=== PATIENT | male | born 1945 | race Caucasian/White ===

== ENCOUNTER → 2016-12-30 | Outpatient (CLI) | payer MEDICARE, OTHER ==
[~2016-12-30] MED LIST: (DPS FOR ANTIVE25 MG PO; ASPIRIN (CHILDR81 MG PO; CPAP INH; GLUCOPHAGE500 MG PO; HYDRODIURIL25 MG PO; LIPITOR80 MG PO; LOPRESSOR25 MG PO; NORCO 5-325 MG1 TAB PO; NORVASC10 MG PO; PRINIVIL OR ZES10 MG PO; SOTALOL120 MG PO; THERA-VITE W/ B1 TAB PO; TUMS REGULAR ST1 TAB PO; XARELTO20 MG PO; ZYRTEC10 MG PO
[2016-12-30 16:32] LABS: BASOPHIL # 0.1 K/uL (0.0-0.2); BASOPHIL % 0.6 %; EOSINOPHIL # 0.4 K/uL (0.0-0.5); EOSINOPHIL % 4.5 %; HEMATOCRIT 44.4 % (37.0-53.0); HEMOGLOBIN 14.5 g/dL (11.0-16.0); IMMATURE GRANULOCYTE # 0.1 K/uL (0.0-0.3); IMMATURE GRANULOCYTE % 0.5 %; LYMPHOCYTE % 21.4 %; MCH 30.4 pg (27.0-34.0); MCHC 32.7 gm/dL (32.0-36.5); MCV 93.1 fl (83.0-98.0); MONOCYTE # 0.9 K/uL (0.0-1.0); MONOCYTE % 9.7 %; MPV 12.2 fl (9.4-12.4); NEUTROPHIL % 63.3 %; NRBC % 0 /100WBC (0-0.00); PLATELET COUNT 222 K/uL (150-450); RBC 4.77 M/uL (3.50-5.50); RDW-CV 13.1 % (11.9-14.6); WBC 9.5 K/uL (4.0-11.0)
[2016-12-30 16:39] LABS: ALBUMIN 3.5 gm/dL (3.5-5.0); ANION GAP 13.2 (10.0-19.0); BLOOD UREA NITROGEN 20 mg/dL (6-24); CALCIUM 9.4 mg/dL (8.5-10.5); CHLORIDE 102 mMol/L (96-110); CO2 28 mMol/L (22-32); ESTIMATED GFR (MDRD EQUATION) > 60; PHOSPHORUS 3.7 mg/dL (2.5-4.9); POTASSIUM 4.2 mMol/L (3.7-5.1); SODIUM 139 mMol/L (135-145)
== END | disposition disaster alternative care site (69) ==
LOC: LCNC 16:12
PROVIDERS: Internal Medicine Interventional Cardiology
DX: I35.0 Nonrheumatic aortic (valve) stenosis (principal)

== ENCOUNTER 2017-01-02 08:47 | Outpatient (CLI) | payer MEDICARE, OTHER ==
[~2017-01-02] VITALS: Ht 182.9 cm; Wt 165.5 kg
--- NOTE | ~2017-01-02 | CATH ---
Cardiac Diagnostic Report Demographics Patient Name CHAYO RODRIGUEZ Gender Male T Date of 1945 Age 71 year(s) Patient Number [id number] Date of Study 01/02/2017 Visit Number [id number] Room Number G6399 [place] [id number] Ht Wt 165.8 kg Accession Number [id number] BMI Referring Love Alcala MD Primary Physician Physician Performing Bhavna Hernandez MD Secondary Physician Physician Diagnostic Bhavna Hernandez MD Assisting Physician Physician Interventional Physician Cushion Sewer Physician Findings and Conclusions Diagnostic Findings and Conclusion Nonobstructive CAD Severe Aortic stenosis Diagnostic Recommendations Evaluate for TAVR vs SAVR Procedure Description The patient was brought to the diagnostic cardiac catheterization-EP laboratory in the fasting, non-sedated state. Informed consent was obtained in the written and verbal form after the risks and benefits were explained. The patient had no further questions and agreed to proceed. The planned puncture-incision site(s) were shaved and prepped with ChloraPrep and draped in the usual sterile manner. Conscious sedation, supplemental oxygen, and pain control medications were delivered by a registered nurse under physician guidance. Surface ECG rhythm, blood pressure measurement, and pulse oximetry were monitored throughout the procedure. Arterial access. The access site was infiltrated with lidocaine. The vessel was entered with the Seldinger technique. A sheath was advanced into the vessel and used for catheter placement. Venous access. The access site was infiltrated with 2% lidocaine. The vessel was entered with the Seldinger technique. A sheath was advanced into the vessel and used for catheter placement. Right heart catheterization. A [place] catheter was successfully advanced to the right atrium, right ventricle, pulmonary artery, and pulmonary artery wedge position under fluoroscopic guidance. Resting hemodynamics were obtained. Measurements included pressures, arterial and venous oxygen saturation samples, and cardiac output. The [place] was removed without difficulty. Selective left coronary angiography. A catheter was advanced into the left coronary vessel ostium under Fluoroscopic guidance. Contrast was injected by hand. Images were obtained in multiple projections. Selective right coronary angiography. A catheter was advanced into the right coronary vessel ostium under fluoroscopic guidance. Contrast was injected by hand. Images were obtained in multiple projections. Arterial and Venous hemostasis was achieved. The patient was transferred to CT for CTA then to outpatient recovery via cart accompanied by a nurse and tech. The patient left the laboratory in stable condition. Diagnostic Cath Status: Elective Procedure Procedure Type Diagnostic procedure:Angiography:, RHC w/Coronary Angio Indications: Aortic stenosis and Pulmonary HTN. The procedure was explained in detail to the patient. Risks, complications and alternative treatments were reviewed. Written consent was obtained. Medications Reviewed with Patient prior to Procedure. Angiographic Findings Dominance: Right Cardiac Arteries and Lesion Findings LMCA: Lesion on LMCA: Ostial.30% stenosis . LAD: LAD medium ok. Diag 1 medium Lesion on 1st Diag: Mid subsection.50% stenosis . LCx: Circ large. OM large ok Lesion on Prox CX: Ostial.50% stenosis . RCA: RCA large calcified proximal plaque. PL small ok. PDA medium normal. Coronary Tree Procedure Data Procedure Date Date: 01/02/2017Start: 12:20 PMEnd: 01:15 PM Entry Locations - Percutaneous access was performed through the Right Femoral artery (Primary location). A 6 Fr sheath was inserted. Hemostasis was successfully obtained using Perclose ProGlide (Pandorama). Closure Comments: Sutued in place for CTA then Closure device done by Ananda Alcala post CTA. - Retrograde Percutaneous access was performed through the Right Femoral vein. A 7 Fr sheath was inserted. Closure Comments: Sutured in place by Linda Alcala then manual compression held post CTA. Procedure Medications Order and Administration + + +-------+------+ !Time !Medication !Dosage !Route ! + + +-------+------+ !01/02/2017 12:16 PM !Fentanyl !25 mcg !I.V. ! + + +-------+------+ !01/02/2017 12:22 PM !Fentanyl !25 mcg !I.V. ! + + +-------+------+ !01/02/2017 12:25 PM !Fentanyl !25 mcg !I.V. ! + + +-------+------+ !01/02/2017 12:36 PM !Fentanyl !25 mcg !I.V. ! + + +-------+------+ 01/02/2017 12:45 PM !Versed !0.5 mg !I.V. ! + + +-------+------+ Devices Used - A6 Fr. BS Angled Pigtail Diag. Catheterwas used for:LV Pressures.Unable to cannulate the vessel. - A6 Fr. BS JL 4 Diag. Catheterwas used for:Left coronary angiography. - A6 Fr. BS JR 4 Diag. Catheterwas used for:Right coronary angiography. Contrast Material - Isovue [id number] ml Fluoroscopy Time: Diagnostic: 17:12 minutes. Total: 17:12 minutes. Fluoroscopy Dose: Diagnostic: 2077 mGy. Total: 2077 mGy. Estimated Blood Loss: 5 ml. Medical History Performed Procedures and Imaging Results - No ACC stress or imaging studies were performed. Allergies - No known allergies. Risk Factors The patient risk factors include:obesity, hypertension, family history of premature CAD, diabetes mellitus, last creatinine: 1 mg/dl, creatinine clearance: 158.89 ml/min, prior valve surgery/procedure, dyslipidemia and Current/Recent(w/in 1 year) tobacco use. Admission Data Admission Date: 01/02/2017 Admission Time: 08:47 AM Admit Source: Other Insurance Payors: Medicare. Admission Medications + +------+------+ + + + + !Medication !Dosage!Times !Last !Last !Administered !Comments ! ! ! !Per !Delivery !Delivery ! ! ! ! ! !Day !Date !Time ! ! ! + +------+------+ + + + + !LYNETTE ! ! ! ! !Yes ! ! !Inhibitor ! ! ! ! ! ! ! !(any) ! ! ! ! ! ! ! + +------+------+ + + + + !Statin (any)! ! ! ! !Yes ! ! + +------+------+ + + + + Clinical Evaluation Leading to Procedure - There were no CAD presentation symptoms. - Anti-anginal medications were prescribed during the past two weeks. The medication is: Ca channel Blockers. Hemodynamics Condition: Rest Heart Rate: 60 bpm Oxygen Saturation +--------+-----+----+ +---+ + !Location!pCO2 !pO2 !% Saturation !Hgb!O2 Content ! +--------+-----+----+ +---+ + !SVC ! ! !59.8 ! ! ! +--------+-----+----+ +---+ + !IVC ! ! !66.7 ! ! ! +--------+-----+----+ +---+ + !RA ! ! !61.6 ! ! ! +--------+-----+----+ +---+ + !PCW ! ! !63 ! ! ! +--------+-----+----+ +---+ + !AO ! ! !88.6 ! ! ! +--------+-----+----+ +---+ + Pressures (mmHg) +-----+ + !Site !Pressure ! +-----+ + !RA !12 (7) ! +-----+ + !RV !38/ ,8 ! +-----+ + !PCW !15 (12) ! +-----+ + !PA !38/20 (27) ! +-----+ + !AO !122/64 (86) ! +-----+ + Cardiac Output + + +------+ !Time !Cardiac Output (l/min) !Use ! + + +------+ !01/02/2017 12:53 PM !6.29 !True ! + + +------+ !01/02/2017 12:53 PM !4.63 !True ! + + +------+ !01/02/2017 12:54 PM !2.94 !False ! + + +------+ !01/02/2017 12:54 PM !6.81 !True ! + + +------+ !01/02/2017 12:55 PM !8.01 !False ! + + +------+ Cardiac Output +-------+ + + + !Method !CO (l/min) !CI (l/min/m2) !SV (ml) ! +-------+ + + + !Thermal!5.91 ! !97.96 ! +-------+ + + + Shunts Oxygen Values O2 Capacity 197.2 Vascular Resistance (dynes x sec x cm-5) + +-----+----+----+----+---------+-------+ !CO method !TSVR !SVR !TPVR!PVR !TPVR/TSVR!PVR/SVR! + +-----+----+----+----+---------+-------+ !Thermal !14.56!13.3!4.58!2.56!0.31 !0.19 ! + +-----+----+----+----+---------+-------+ Discharge Data Discharge Date: 01/02/2017 Hospital Status: Outpatient Signatures dtt: David Huggins (cardio) dtd: 01/02/17 1220 Physician Self Edit
[~2017-01-02 08:47] MED LIST changes: -(DPS FOR ANTIVE25 MG PO; -ASPIRIN (CHILDR81 MG PO; -TUMS REGULAR ST1 TAB PO; -ZYRTEC10 MG PO
[2017-07-05] MEDS ORDERED: ASPIRIN (CHILDR81 MG PO (10:33)
[2017-07-05] MEDS ORDERED: ZYRTEC10 MG PO (10:33)
[2017-07-05] MEDS ORDERED: (DPS FOR ANTIVE25 MG PO (10:34)
[2017-07-05] MEDS ORDERED: TUMS REGULAR ST1 TAB PO (10:35)
== END 2017-01-02 17:30 | disposition disaster alternative care site (69) ==
LOC: GPCU 08:47 → GCAT 08:47 → GPOC 09:00 → GCAT 17:30
PROC: B2111ZZ Fluoroscopy of Multiple Coronary Arteries using Low Osmolar Contrast (ICD-10-PCS; principal; 2017-01-02)
PROC: 4A023N6 Measurement of Cardiac Sampling and Pressure, Right Heart, Percutaneous Approach (ICD-10-PCS; principal; 2017-01-02)
DX: I35.0 Nonrheumatic aortic (valve) stenosis (principal); I25.10 Atherosclerotic heart disease of native coronary artery without angina pectoris; I44.1 Atrioventricular block, second degree; I27.2 Other secondary pulmonary hypertension; I10 Essential (primary) hypertension; I48.91 Unspecified atrial fibrillation; E78.5 Hyperlipidemia, unspecified; E11.9 Type 2 diabetes mellitus without complications; Z68.43 Body mass index [BMI] 50.0-59.9, adult; E66.01 Morbid (severe) obesity due to excess calories; F17.200 Nicotine dependence, unspecified, uncomplicated; G47.33 Obstructive sleep apnea (adult) (pediatric); Z85.46 Personal history of malignant neoplasm of prostate; Z96.653 Presence of artificial knee joint, bilateral; Z95.0 Presence of cardiac pacemaker; Z90.79 Acquired absence of other genital organ(s); Z79.01 Long term (current) use of anticoagulants; Z79.84 Long term (current) use of oral hypoglycemic drugs; Z79.899 Other long term (current) drug therapy; Z82.49 Family history of ischemic heart disease and other diseases of the circulatory system
CPT/HCPCS: C1760; J1644; J2001; J2250; J3010; J7030; J7060; Q9967

== ENCOUNTER → 2017-01-07 | Outpatient (CLI) | payer MEDICARE, OTHER ==
[~2017-01-07] VITALS: Ht 182.9 cm; Wt 162.2 kg
[~2017-01-07] MED LIST changes: +(DPS FOR ANTIVE25 MG PO; +ASPIRIN (CHILDR81 MG PO; +TUMS REGULAR ST1 TAB PO; +ZYRTEC10 MG PO
--- NOTE | ~2017-01-07 | ECHO ---
Transesophageal Echocardiography Report ([facility]RIEDA) Demographics Patient Name MICHAEL DOMINGO Date of Study 01/07/2017 T Patient Number [id number] Visit Number [id number] Date of 1945 Room Number Gender Male Number Age 71 year(s) Referring Bhavna Hernandez MD Line Assembler Hansa Walsh, Physician RT,RVT,RDCS Physician Interpreting Veena Montanezliz Cpas Physician Supervising Ordering Bhavna Hernandez MD, MD/MLP Physician Nurse Stress Lifts And Cranes Inspector Conclusions Summary Transesophageal echocardiogram was done under general anesthesia without difficult probe placement . Severe aortic stenosis The aortic valve area by planimetry is 0.88 cm2. The peak velocity is 4 m/s, the peak gradient across aortic valve is 64 mm hg and the mean gradient is 34 mmHg. The gradients could be underestimated. Moderate concentric hypertrophy. Left ventricular systolic function appears preserved with estimated LV ejection fraction of 60-65% Moderate mitral annular calcification. Mild to moderate echogenic plaque in the thoracic aorta without mobile elements. The patient and his son were notified of the findings. Procedure Type of Study FRIEDA procedure:Doppler , Color Doppler. Procedure Date Date: 01/07/2017 Start: 11:57 AM Study Location: Echo Lab Technical Quality: Good visualization Indications:Aortic stenosis. Appropriate Use Criteria: 9 Patient Status: Routine HR: 60 bpm BP: 137/82 mmHg O2 Saturation: 93 % FRIEDA Performed By: the attending and the funeral director Type of Anesthesia: General anesthesia Allergies - No known allergies. Doppler Measurements AV Peak Velocity: 3.95 m/s AV Peak Gradient: 62.41 mmHg AV Mean Gradient: 34 mmHg Findings Left Ventricle The left ventricle is normal in size . Moderate concentric hypertrophy. Left ventricular systolic function appears preserved with estimated LV ejection fraction of 60-65% Right Ventricle Normal right ventricular size and function. Left Atrium There is no LA or LA appendage thrombus or spontaneous contrast. Informed consent was obtained, bubble study was done, there is no evidence for a PFO or ASD. Right Atrium The right atrium is not dilated. Mitral Valve Moderate mitral annular calcification. Trivial mitral regurgitation by color Doppler. Aortic Valve Severe aortic stenosis The aortic valve area by planimetry is 0.88 cm2. The peak velocity is 4 m/s, the peak gradient across aortic valve is 64 mm hg and the mean gradient is 34 mmHg Tricuspid Valve Normal appearing tricuspid valve. Trivial tricuspid regurgitation by color Doppler. Pulmonic Valve Normal pulmonic valve structure and function. Pericardial Effusion No pericardial effusion. Miscellaneous Mild to moderate echogenic plaque in the thoracic aorta without mobile elements. Contractility Score LV regional wall motion:(0-Non visualized 1-Normal 2-Hypokinesis 3-Akinesis 4-Dyskinesis 5-Aneurysm) Signature dtt: YOLANDA BENSON dtd: 01/07/17 1157 Physician Self Edit
== END | disposition disaster alternative care site (69) ==
LOC: GOPD 01-06 15:30 → GCAR 10:49 → GOPD 11:00
DX: I35.0 Nonrheumatic aortic (valve) stenosis (principal); I70.0 Atherosclerosis of aorta; I65.21 Occlusion and stenosis of right carotid artery; I70.8 Atherosclerosis of other arteries; E11.9 Type 2 diabetes mellitus without complications; Z79.01 Long term (current) use of anticoagulants; Z79.84 Long term (current) use of oral hypoglycemic drugs
CPT/HCPCS: J2001; J7030

== ENCOUNTER → 2017-01-27 | Outpatient (CLI) | payer MEDICARE, OTHER ==
[2017-01-27 12:42] LABS: BASOPHIL # 0.1 K/uL (0.0-0.2); BASOPHIL % 0.5 %; EOSINOPHIL # 0.3 K/uL (0.0-0.5); EOSINOPHIL % 3.1 %; HEMATOCRIT 34.6 % (37.0-53.0); HEMOGLOBIN 11.6 g/dL (11.0-16.0); IMMATURE GRANULOCYTE # 0.1 K/uL (0.0-0.3); IMMATURE GRANULOCYTE % 0.5 %; LYMPHOCYTE # 1.9 K/uL (0.8-4.0); LYMPHOCYTE % 19.6 %; MCHC 33.5 gm/dL (32.0-36.5); MCV 92.5 fl (83.0-98.0); MONOCYTE # 0.9 K/uL (0.0-1.0); MONOCYTE % 9.7 %; MPV 11.6 fl (9.4-12.4); NEUTROPHIL # (ANC) 6.4 K/uL (1.4-9.0); NEUTROPHIL % 66.6 %; NRBC % 0 /100WBC (0-0.00); PLATELET COUNT 207 K/uL (150-450); RBC 3.74 M/uL (3.50-5.50); RDW-CV 12.8 % (11.9-14.6); WBC 9.7 K/uL (4.0-11.0)
[2017-01-27 12:51] LABS: ANION GAP 10.8 (10.0-19.0); BLOOD UREA NITROGEN 27 mg/dL (6-24); CALCIUM 8.8 mg/dL (8.5-10.5); CHLORIDE 102 mMol/L (96-110); CO2 28 mMol/L (22-32); ESTIMATED GFR (MDRD EQUATION) > 60; POTASSIUM 3.8 mMol/L (3.7-5.1); SODIUM 137 mMol/L (135-145)
== END | disposition disaster alternative care site (69) ==
LOC: LCNC 12:17
PROVIDERS: Internal Medicine Interventional Cardiology
DX: I35.0 Nonrheumatic aortic (valve) stenosis (principal)

== ENCOUNTER 2017-01-30 12:05 | Emergency (ER) | payer MEDICARE, OTHER ==
--- NOTE | ~2017-01-30 | ER ---
PATIENT'S NAME: MICHAEL DOMINGO [facility] AGE: 71 Y [address] ROOM: [place] [address] LOCATION: [facility] ADMIT DATE: 01/30/2017 ER/Outpatient Report DISCHARGE DATE: 01/30/2017 FAMILY PHYSICIAN: Nasir Aleman MD ATTENDING PHYSICIAN: Andres Zheng CHIEF COMPLAINT: Dizziness. HISTORY OF PRESENT ILLNESS: The patient states that around 11 o'clock, he had acute onset of a lightheaded sensation upon going home. He had some breakfast sandwich as this morning and had never had anything like that before. He denies any headache with this. It is just a lightheaded, "water in the head" sensation. He did have some similar sensations in the past, but he has never had anything this intense. Of note, he did have an aortic valve replacement approximately 2 weeks ago in [place], and he has otherwise been doing well. He arrives by EMS. No acute distress. No medications given. Accu-Chek 114 per them. He did have elevated blood pressure initially, and on recheck was within much more normal range per EMS. No other acute findings, and no obvious neurologic symptoms otherwise. PAST MEDICAL HISTORY: Notable for: 1. Diabetes. 2. Hypertension. 3. Dyslipidemia. 4. Complete heart block, status post pacer and normal heart catheterization. ALLERGIES: NONE. MEDICATIONS: See med list. REVIEW OF SYSTEMS: All systems reviewed and negative except as noted in the HPI. PHYSICAL EXAMINATION: VITAL SIGNS: Blood pressure 147/79, pulse 62, respiratory rate is 20, temp 96.0, SpO2 is 94% on room air. GENERAL: An age-appropriate male. No obvious pain or distress. Resting comfortably on the exam table. NEURO: The patient is awake and alert. GCS is 15. No focal deficits. No asymmetry. There are no cranial nerve deficits. The eyes are PERRL. The PATIENT'S NAME: MICHAEL DOMINGO [facility] AGE: 71 Y [address] ROOM: [place] [address] LOCATION: [facility] ADMIT DATE: 01/30/2017 ER/Outpatient Report DISCHARGE DATE: 01/30/2017 FAMILY PHYSICIAN: Nasir Aleman MD ATTENDING PHYSICIAN: Andres Zheng extraocular movements are intact. No inducible nystagmus. Vision grossly intact. Visual small grossly intact. Head impulse testing was not done. There is no nystagmus on exam. There is no vertical skew noted. Anahy-Hallpike maneuver is not eliciting nystagmus. The patient has no difficulty with past pointing. No difficulty with rapid alternating movements of the arms or legs, and no asymmetry on strength exam. He denies any sensory deficits on exam. No dysarthria or asymmetry otherwise on exam. HEENT: Normocephalic, atraumatic. The eyes are PERRL. The oropharynx is clear. The right TM is poorly visualized but no obvious abnormalities. Left TM is notable for some bulging without purulent secretions. NECK: Supple. Trachea is midline. CHEST: Heart is regular rate and rhythm. There are very prominent heart sounds auscultated over the aortic area with no flow murmurs appreciated. No muffled heart tones. LUNGS: Clear to auscultation bilaterally with no rhonchi, wheezes, or rales. ABDOMEN: Soft, nontender, and nondistended. No rebound or guarding. BACK: Nontender to palpation throughout. No CVA tenderness. EXTREMITIES: Warm and well perfused. No obvious abnormalities. The right groin puncture site appears to have some fibrinous material in it, but no evidence of bleeding or infection. SKIN: Warm, dry, and intact. LABORATORY DATA AND X-RAYS: Chest x-ray was obtained and unremarkable per my read. Labs are notable for a glucose of 126 and grossly normal CMS otherwise. Magnesium 1.6. Troponin below threshold, CK-MB is 1.8. CBC is unremarkable. INR is 1.12. EKG appears to be a ventricularly paced rhythm with no dysrhythmias appreciated. No significant changes as compared to prior EKG from 01/20/2017. EKG does not meet Sgarbossa's criteria. IMPRESSION: Vertigo, not otherwise specified. EMERGENCY DEPARTMENT COURSE: The patient was seen and evaluated as above. There is no history consistent with intracranial hemorrhage. The acute onset of vertigo required further evaluation for possible stroke. There are no testable neurologic deficits on the patient's exam. His vertigo appears to be peripheral. Not consistent with central cause for his presentation at this time. It is improving. The patient was given meclizine 25 mg p.o. and had marked improvement over 1 hour. He was able to ambulate with minimal assistance at that time. Labs are unremarkable. EKG is not consistent with any dysrhythmia. He reportedly had a clean catheterization before his aortic valve replacement. I did speak with Dr. Huggins over the phone, and Dr. Huggins's office will place the patient on an event monitor for the next few days. I spoke at length with the family, PATIENT'S NAME: MICHAEL DOMINGO [facility] AGE: 71 Y [address] ROOM: [place] [address] LOCATION: [facility] ADMIT DATE: 01/30/2017 ER/Outpatient Report DISCHARGE DATE: 01/30/2017 FAMILY PHYSICIAN: Nasir Aleman MD ATTENDING PHYSICIAN: Andres Zheng and they will attempt to take care of him at home and ensure that he has a safe environment. They will return if there are any other concerns. At this time, his presentation is not consistent with stroke. Benign positional vertigo is less likely. All questions were answered, and the patient was discharged in stable and improved condition. MD DAREN GOODMAN/aly /[id number] d: 01/30/17 2350 t: 02/09/17 0640, OUTPATIENT REPORT
[~2017-01-30 12:05] MED LIST changes: -(DPS FOR ANTIVE25 MG PO; -ASPIRIN (CHILDR81 MG PO; -TUMS REGULAR ST1 TAB PO; -ZYRTEC10 MG PO
[2017-01-30 12:35] LABS: BASOPHIL # 0.1 K/uL (0.0-0.2); BASOPHIL % 0.7 %; EOSINOPHIL # 0.3 K/uL (0.0-0.5); EOSINOPHIL % 3.3 %; HEMATOCRIT 33.7 % (37.0-53.0); HEMOGLOBIN 11.1 g/dL (11.0-16.0); IMMATURE GRANULOCYTE % 0.2 %; LYMPHOCYTE # 1.7 K/uL (0.8-4.0); LYMPHOCYTE % 21.1 %; MCH 30.7 pg (27.0-34.0); MCHC 32.9 gm/dL (32.0-36.5); MCV 93.4 fl (83.0-98.0); MONOCYTE # 0.7 K/uL (0.0-1.0); MONOCYTE % 9.1 %; MPV 11.4 fl (9.4-12.4); NEUTROPHIL # (ANC) 5.3 K/uL (1.4-9.0); NEUTROPHIL % 65.6 %; NRBC % 0 /100WBC (0-0.00); PLATELET COUNT 228 K/uL (150-450); RBC 3.61 M/uL (3.50-5.50); RDW-CV 12.8 % (11.9-14.6); WBC 8.2 K/uL (4.0-11.0)
[2017-01-30 12:43] LABS: INR - (THERAPEUTIC) 1.12 (0.92-1.07); PROTIME 11.8 SECONDS (9.8-11.4); PTT 29 SECONDS (25-32)
[2017-01-30 12:55] LABS: ALBUMIN 3.2 gm/dL (3.5-5.0); ALK PHOS 78 IU/L (33-138); ALT 26 IU/L (12-78); ANION GAP 13.8 (10.0-19.0); AST 19 IU/L (10-40); BLOOD UREA NITROGEN 13 mg/dL (6-24); CALCIUM 8.8 mg/dL (8.5-10.5); CHLORIDE 102 mMol/L (96-110); CO2 27 mMol/L (22-32); CPK 97 IU/L (35-332); CREATININE 0.8 mg/dL (0.6-1.3); ESTIMATED GFR (MDRD EQUATION) > 60; MAGNESIUM 1.6 mg/dL (1.3-2.6); POTASSIUM 3.8 mMol/L (3.7-5.1); SODIUM 139 mMol/L (135-145); TOTAL BILIRUBIN 0.7 mg/dL (0.0-1.5); TOTAL PROTEIN 6.7 g/dL (6.0-8.4)
[2017-07-05] MEDS ORDERED: ASPIRIN (CHILDR81 MG PO (10:33)
[2017-07-05] MEDS ORDERED: ZYRTEC10 MG PO (10:33)
[2017-07-05] MEDS ORDERED: (DPS FOR ANTIVE25 MG PO (10:34)
[2017-07-05] MEDS ORDERED: TUMS REGULAR ST1 TAB PO (10:35)
== END 2017-01-30 15:04 | disposition disaster alternative care site (69) ==
LOC: GMED 12:05
PROVIDERS: Emergency Medicine
DX: R42 Dizziness and giddiness (principal); E11.9 Type 2 diabetes mellitus without complications; I10 Essential (primary) hypertension; E78.5 Hyperlipidemia, unspecified

== ENCOUNTER → 2017-01-30 | Outpatient (CLI) | payer MEDICARE, OTHER | END | disposition disaster alternative care site (69) | LOC: GAMB 11:36 | DX: R53.1 Weakness (principal); R42 Dizziness and giddiness; R11.0 Nausea; Z79.899 Other long term (current) drug therapy | CPT/HCPCS: A0425; A0427 ==

== ENCOUNTER → 2017-07-05 | Outpatient (CLI) | payer MEDICARE, OTHER ==
[~2017-07-05] MED LIST changes: +(DPS FOR ANTIVE25 MG PO; +ASPIRIN (CHILDR81 MG PO; +TUMS REGULAR ST1 TAB PO; +ZYRTEC10 MG PO
== END | disposition disaster alternative care site (69) ==
LOC: GAMB 05:48
DX: T14.90 Injury, unspecified (principal); M54.9 Dorsalgia, unspecified; K92.1 Melena; I95.9 Hypotension, unspecified; I48.2 Chronic atrial fibrillation; I10 Essential (primary) hypertension; E11.9 Type 2 diabetes mellitus without complications; R42 Dizziness and giddiness; W01.0XXA Fall on same level from slipping, tripping and stumbling without subsequent striking against object, initial encounter; Z86.79 Personal history of other diseases of the circulatory system; Z95.0 Presence of cardiac pacemaker; Z79.01 Long term (current) use of anticoagulants; Z79.84 Long term (current) use of oral hypoglycemic drugs; Z79.899 Other long term (current) drug therapy
CPT/HCPCS: J3010; J7030